=== PATIENT | male | born 1970 | race Caucasian/White ===

== ENCOUNTER 2016-12-23 19:59 | Emergency (ER) | payer MEDICAID ==
[~2016-12-23] VITALS: Ht 182.9 cm; Wt 86.2 kg
--- NOTE | 2016-12-23 20:00 | NUR ---
PT TO ER [facility] FOR ETOH. PT FOUND LAYING OUTSIDE OF APARTMENT COMPLEX. NO SIGNS OF TRAUMA NOTED. PT APPEARS HEAVILY INTOXICATED, DOES ADMIT TO DRINKING ALCOHOL. PT CALM AND COOPERATIVE UPON ARRIVAL. PT CHANGED INTO GOWN AND CONNECTED TO MONITOR . PT VITAL SIGNS NORMAL. WILL CONT TO MONITOR PT.
--- NOTE | 2016-12-24 00:30 | NUR ---
PT SLEEPING IN GURNEY. NO SIGNS OF DISTRESS NOTED. PT VITAL SIGNS NORMAL . PT EASILY AROUSABLE. WILL CONT TO MONITOR PT .
--- NOTE | 2016-12-24 05:16 | NUR ---
PT NOW A/OX4. PT ADMITS TO DRINKING HEAVILY YESTERDAY. PT DENIES SI/HI. PT VITAL SIGNS STABLE. WILL TO MONITOR PT.
[2016-12-24 06:16] VITALS: BP 128/79
--- NOTE | 2016-12-24 06:16 | NUR ---
PT OK TO BE DISCHARGED PER DR BAKER. Patient discharged to home in stable condition. Written and verbal after care instructions given. Patient verbalizes understanding of instruction.ambulatory with a steady gait. Patient is awake and alert to self, day, and place.
== END 2016-12-24 06:20 | disposition home or self-care (01) ==
LOC: ER 20:02
DX: F10.129 Alcohol abuse with intoxication, unspecified (principal)
CPT/HCPCS: 99283; A4606; A6402; Z7610